=== PATIENT | male | born 1950 | race Caucasian/White ===

== ENCOUNTER → 2018-06-25 09:00 | Outpatient (CLI) | payer MEDICARE, OTHER, SELFPAY ==
[2018-06-25 09:17] LABS: Add Manual Diff / Slide Review NO; Basophils Absolute Auto 0 /uL (0-100); Eosinophils Absolute Auto 100 /uL (0-450); Eosinophils Percent Auto 1.9 % (2-4); Hematocrit 39.6 % (41-53); Hemoglobin 13.9 g/dL (13.5-17.5); Lymphocytes Absolute Auto 1800 /uL (1100-4500); Lymphocytes Percent Auto 56.5 % (25-40); Mean Corpuscular HGB Conc 35.1 % (30-36); Mean Corpuscular Hemoglobin 32.4 PG (26-34); Mean Corpuscular Volume 92.3 fL (80-100); Monocytes Absolute Auto 300 /uL (0-900); Neutrophils Absolute Auto 1000 /uL (1500-7000); Neutrophils Percent Auto 30.6 % (50-75); Platelet Count 234 X10^3/uL (150-400); Red Blood Cell Count 4.29 X10^6/uL (4.5-5.9); Red Cell Distribution Width 12.9 % (11.6-14.8); White Blood Cell Count 3.2 X10^3/uL (4.5-11.0)
[2018-06-25 09:37] LABS: Alanine Aminotransferase 29 IU/L (21-72); Albumin 4.6 g/dL (3.5-5.0); Albumin Globulin Ratio 1.4 (1.0-2.8); Alkaline Phosphatase 50 U/L (38-126); Aspartate Aminotransferase 31 IU/L (17-59); Bilirubin Total 1.1 mg/dL (0.2-1.3); Blood Urea Nitrogen 27 mg/dL (9-20); Calcium 9.7 mg/dL (8.4-10.2); Carbon Dioxide 26 mmol/L (22-32); Chloride 104 mmol/L (98-107); Cholesterol 197 mg/dL (140-199); Estimated Glomerular Filt Rate > 60.0 mL/min (>60); Globulin 3.4 g/dL (1.7-4.1); Glucose 85 mg/dL (80-110); HDL Cholesterol 58 mg/dL (40-60); HEMOLYSIS 19 (0-50); LDL Cholesterol Calculated 126 mg/dL (<100); Potassium 4.6 mmol/L (3.4-5.1); Sodium 140 mmol/L (137-145); Triglycerides 67 mg/dL (35-150)
[2018-06-25 11:01] LABS: Thyroid Stimulating Hormone 2.08 uIU/mL (0.47-4.68)
== END ==
PROVIDERS: PCP Family Medicine; Visit Provider Family Medicine
DX: E78.2 Mixed hyperlipidemia (principal); Z12.5 Encounter for screening for malignant neoplasm of prostate
CPT/HCPCS: 36415; 80053; 80061; 84153; 84443; 85025; G0103

== ENCOUNTER → 2019-02-12 11:16 | Outpatient (CLI) | payer MEDICARE, OTHER, SELFPAY ==
[2019-02-12 12:00] LABS: Add Manual Diff / Slide Review NO; Basophils Absolute Auto 0 /uL (0-100); Basophils Percent Auto 1.2 % (0-2); Eosinophils Absolute Auto 100 /uL (0-450); Eosinophils Percent Auto 1.7 % (2-4); Hematocrit 39.8 % (41-53); Hemoglobin 13.9 g/dL (13.5-17.5); Lymphocytes Absolute Auto 1700 /uL (1100-4500); Lymphocytes Percent Auto 54.2 % (25-40); Mean Corpuscular HGB Conc 34.8 % (30-36); Mean Corpuscular Hemoglobin 32.3 PG (26-34); Mean Corpuscular Volume 92.9 fL (80-100); Monocytes Absolute Auto 300 /uL (0-900); Monocytes Percent Auto 9.9 % (3-14); Neutrophils Absolute Auto 1100 /uL (1500-7000); Platelet Count 209 X10^3/uL (150-400); Red Blood Cell Count 4.29 X10^6/uL (4.5-5.9); White Blood Cell Count 3.2 X10^3/uL (4.5-11.0)
== END ==
PROVIDERS: PCP Family Medicine; Visit Provider Family Medicine
DX: D72.819 Decreased white blood cell count, unspecified (principal)
CPT/HCPCS: 36415; 85025

== ENCOUNTER → 2019-08-04 08:16 | Outpatient (CLI) | payer MEDICARE, OTHER, SELFPAY ==
[2019-08-04 09:34] LABS: Add Manual Diff / Slide Review NO; Basophils Absolute Auto 0 /uL (0-100); Basophils Percent Auto 0.9 % (0-2); Eosinophils Absolute Auto 200 /uL (0-450); Eosinophils Percent Auto 4.2 % (2-4); Hematocrit 41.7 % (41-53); Hemoglobin 14.3 g/dL (13.5-17.5); Lymphocytes Absolute Auto 2100 /uL (1100-4500); Lymphocytes Percent Auto 56.1 % (25-40); Mean Corpuscular HGB Conc 34.3 % (30-36); Mean Corpuscular Hemoglobin 32.2 PG (26-34); Mean Corpuscular Volume 93.8 fL (80-100); Monocytes Absolute Auto 400 /uL (0-900); Monocytes Percent Auto 10.8 % (3-14); Neutrophils Absolute Auto 1000 /uL (1500-7000); Platelet Count 220 X10^3/uL (150-400); Red Blood Cell Count 4.44 X10^6/uL (4.5-5.9); Red Cell Distribution Width 13.2 % (11.6-14.8); White Blood Cell Count 3.7 X10^3/uL (4.5-11.0)
--- NOTE | 2019-08-13 11:54 | ONC.MSW ---
Description: New Referral Navigation Activity: Reviewed pt's referral for acuity, medical status and immediate needs. Forwarded to scheduling for next available initial visit time.
== END ==
PROVIDERS: PCP Family Medicine; Referring Provider Family Medicine; Visit Provider Family Medicine
DX: R79.89 Other specified abnormal findings of blood chemistry (principal)
CPT/HCPCS: 36415; 85025

== ENCOUNTER → 2019-08-18 15:31 | Outpatient (CLI) | payer MEDICARE, OTHER, SELFPAY ==
[2019-08-18 15:48] LABS: Add Manual Diff / Slide Review NO; Basophils Absolute Auto 0 /uL (0-100); Basophils Percent Auto 1.1 % (0-2); Eosinophils Absolute Auto 100 /uL (0-450); Eosinophils Percent Auto 2.6 % (2-4); Hematocrit 38.4 % (41-53); Hemoglobin 13.5 g/dL (13.5-17.5); Lymphocytes Absolute Auto 1400 /uL (1100-4500); Lymphocytes Percent Auto 38.8 % (25-40); Mean Corpuscular HGB Conc 35.3 % (30-36); Mean Corpuscular Hemoglobin 32.6 PG (26-34); Mean Corpuscular Volume 92.4 fL (80-100); Monocytes Absolute Auto 500 /uL (0-900); Monocytes Percent Auto 13.8 % (3-14); Neutrophils Absolute Auto 1600 /uL (1500-7000); Neutrophils Percent Auto 43.7 % (50-75); Platelet Count 208 X10^3/uL (150-400); Red Blood Cell Count 4.15 X10^6/uL (4.5-5.9); Red Cell Distribution Width 13.5 % (11.6-14.8); White Blood Cell Count 3.6 X10^3/uL (4.5-11.0)
[2019-08-18 15:59] LABS: Alanine Aminotransferase 11 IU/L (<50); Albumin 4.6 g/dL (3.5-5.0); Albumin Globulin Ratio 1.2 (1.0-2.8); Alkaline Phosphatase 53 U/L (38-126); Aspartate Aminotransferase 26 IU/L (17-59); Bilirubin Total 1.1 mg/dL (0.2-1.3); Blood Urea Nitrogen 33 mg/dL (9-20); Calcium 9.7 mg/dL (8.4-10.2); Carbon Dioxide 26 mmol/L (22-32); Chloride 106 mmol/L (98-107); Estimated Glomerular Filt Rate > 60.0 mL/min (>60); Globulin 3.7 g/dL (1.7-4.1); Glucose 85 mg/dL (80-110); HEMOLYSIS < 15 (0-50); Lactate Dehydrogenase 359 U/L (313-618); Sodium 140 mmol/L (137-145); Total Protein 8.3 g/dL (6.3-8.2)
[2019-08-18 17:05] LABS: Folate 13.9 ng/mL (2.76-20.0); Vitamin B12 806 pg/mL (239-931)
[2019-08-19 04:22] LABS: Homocysteine 16.9 umol/L (0.0-17.2)
[2019-08-20 13:36] LABS: Albumin 3.9 g/dL (2.9-4.4); Alpha-1-Globulin 0.2 g/dL (0.0-0.4); Alpha-2-Globulin 0.5 g/dL (0.4-1.0); Gamma Globulin 1.4 g/dL (0.4-1.8); Globulin Total 3.1 g/dL (2.2-3.9)
[2019-08-20 14:31] LABS: Methylmalonic Acid,Serum 330 nmol/L (0-378)
== END ==
PROVIDERS: PCP Family Medicine; Referring Provider Internal Medicine Hematology & Oncology; Visit Provider Internal Medicine Hematology & Oncology
DX: D72.819 Decreased white blood cell count, unspecified (principal)
CPT/HCPCS: 36415; 80053; 82607; 82746; 83090; 83615; 83921; 84155; 84165; 85025

== ENCOUNTER → 2021-11-16 09:08 | Outpatient (CLI) | payer MEDICARE, OTHER, SELFPAY ==
[2021-11-16 09:43] LABS: Add Manual Diff / Slide Review NO; Basophils Absolute Auto 100 /uL (0-100); Basophils Percent Auto 1.3 % (0-2); Eosinophils Absolute Auto 100 /uL (0-450); Hematocrit 42.2 % (41-53); Hemoglobin 14.8 g/dL (13.5-17.5); Lymphocytes Absolute Auto 1900 /uL (1100-4500); Lymphocytes Percent Auto 47.9 % (25-40); Mean Corpuscular HGB Conc 34.9 % (30-36); Mean Corpuscular Hemoglobin 32.1 PG (26-34); Monocytes Absolute Auto 400 /uL (0-900); Monocytes Percent Auto 10.9 % (3-14); Neutrophils Absolute Auto 1500 /uL (1500-7000); Neutrophils Percent Auto 36.9 % (50-75); Platelet Count 243 X10^3/uL (150-400); Red Blood Cell Count 4.59 X10^6/uL (4.5-5.9); Red Cell Distribution Width 14.1 % (11.6-14.8)
[2021-11-16 12:11] LABS: Alanine Aminotransferase 18 IU/L (<50); Albumin 4.5 g/dL (3.5-5.0); Albumin Globulin Ratio 1.4 (1.0-2.8); Alkaline Phosphatase 63 U/L (38-126); Aspartate Aminotransferase 25 IU/L (17-59); BUN Creatinine Ratio 18.2 (6-22); Bilirubin Total 1.5 mg/dL (0.2-1.3); Blood Urea Nitrogen 22 mg/dL (9-20); Calcium 9.2 mg/dL (8.4-10.2); Carbon Dioxide 24 mmol/L (22-32); Chloride 104 mmol/L (98-107); Cholesterol 205 mg/dL (140-199); Estimated Glomerular Filt Rate > 60 mL/min (>60); Globulin 3.3 g/dL (1.7-4.1); Glucose 87 mg/dL (80-110); HDL Cholesterol 59 mg/dL (40-60); HEMOLYSIS < 15 (0-50); LDL Cholesterol Calculated 127 mg/dL (<100); Potassium 4.5 mmol/L (3.4-5.1); Sodium 139 mmol/L (137-145); Total Protein 7.8 g/dL (6.3-8.2); Triglycerides 93 mg/dL (35-150)
[2021-11-16 12:42] LABS: Prostate Specific Antigen 1.36 ng/mL (0.10-4.00)
== END ==
PROVIDERS: PCP Family Medicine; Referring Provider Family Medicine; Visit Provider Family Medicine
DX: K63.5 Polyp of colon (principal); E78.2 Mixed hyperlipidemia; Z90.79 Acquired absence of other genital organ(s); D72.819 Decreased white blood cell count, unspecified
CPT/HCPCS: 36415; 80053; 80061; 84153; 85025

== ENCOUNTER → 2024-11-25 11:03 | Outpatient (CLI) | payer MEDICARE, OTHER, SELFPAY ==
[2024-11-25 12:11] LABS: Add Manual Diff / Slide Review NO; Hematocrit 40.1 % (41-53); Hemoglobin 14.1 g/dL (13.5-17.5); Lymphocytes Absolute Auto 1700 /uL (1100-4500); Mean Corpuscular HGB Conc 35.2 % (30-36); Mean Corpuscular Hemoglobin 32.5 PG (26-34); Mean Corpuscular Volume 92.4 fL (80-100); Platelet Count 225 X10^3/uL (150-400)
[2024-11-25 12:17] LABS: Hemoglobin A1C% w Est Avg Glu 4.7 % (4.0-6.0)
[2024-11-25 12:27] LABS: Alanine Aminotransferase 15 IU/L (<50); Albumin 4.6 g/dL (3.5-5.0); Albumin Globulin Ratio 1.4 (1.0-2.8); Alkaline Phosphatase 60 U/L (38-126); Blood Urea Nitrogen 30 mg/dL (9-20); Calcium 9.6 mg/dL (8.4-10.2); Carbon Dioxide 23 mmol/L (22-32); Chloride 105 mmol/L (98-107); Estimated Glomerular Filt Rate > 60 mL/min (>60); Globulin 3.3 g/dL (1.7-4.1); Glucose 79 mg/dL (70-99); HEMOLYSIS < 15 (0-50); Iron 141 ug/dL (49-181); Potassium 4.7 mmol/L (3.4-5.1); Sodium 138 mmol/L (137-145); Total Protein 7.9 g/dL (6.3-8.2)
[2024-11-25 12:44] LABS: Percent Iron Saturation 47 % (20-50); Total Iron Binding Capacity 298 ug/dL (261-462); Transferrin 232 mg/dL (206-381)
[2024-11-25 12:55] LABS: TSH w/ Reflex to FT4 3.72 uIU/mL (0.47-4.68)
[2024-11-25 13:14] LABS: Vitamin B12 883 pg/mL (239-931)
== END ==
PROVIDERS: PCP Family Medicine; Referring Provider Family Medicine; Visit Provider Family Medicine
DX: Z12.5 Encounter for screening for malignant neoplasm of prostate (principal); R25.1 Tremor, unspecified; D64.89 Other specified anemias; K63.5 Polyp of colon; N40.0 Benign prostatic hyperplasia without lower urinary tract symptoms; E78.2 Mixed hyperlipidemia; R26.9 Unspecified abnormalities of gait and mobility
CPT/HCPCS: 36415; 80053; 82607; 83036; 83540; 83550; 84443; 85025; G0103

== ENCOUNTER → 2024-12-22 06:41 | Outpatient (CLI) | payer MEDICARE, OTHER, SELFPAY ==
--- NOTE | 2024-12-22 06:43 | DI.US.S_ITS ---
PROCEDURE: US ABDOMEN LIMITED INDICATIONS: ABNORMAL LFTS TECHNIQUE: Real-time scanning was performed of the abdominal and retroperitoneal organs, with image documentation. COMPARISON: None. FINDINGS: Liver: Liver is normal in size and homogeneous in echotexture. Gallbladder: 7 mm gallstone in the neck. Tumefactive sludge versus 5 mm gallbladder polyp; size does not warrant follow-up per consensus guidelines. No wall thickening. No pericholecystic edema. Negative sonographic Ding's sign. Biliary ducts: Intrahepatic bile ducts are non-dilated. Extrahepatic bile duct caliber measures 5 mm. Normal is 6-7 mm or less in diameter, or 10 mm or less post-cholecystectomy. Pancreas: Not well visualized due to overlying bowel gas. Miscellaneous: No free abdominal fluid. IMPRESSION: Cholelithiasis without wall thickening or adjacent fat stranding to suggest acute cholecystitis. Dictated by: Fredy Mendoza M.D. on 12/22/2024 at 10:54 Approved by: Fredy Mendoza M.D. on 12/22/2024 at 10:56
== END ==
LOC: US 06:42
PROVIDERS: PCP Family Medicine; Referring Provider Family Medicine; Visit Provider Family Medicine
DX: R17 Unspecified jaundice (principal); K80.20 Calculus of gallbladder without cholecystitis without obstruction
CPT/HCPCS: 76705

== ENCOUNTER 2025-03-02 07:34 | Day surgery (SDC) | payer MEDICARE, OTHER, SELFPAY ==
[2025-02-19 13:44] VITALS: BMI 25.7
--- NOTE | 2025-03-02 | DI.RAD.S_ITS ---
PROCEDURE: XR CHOLANGIOGRAM OPERATIVE INDICATIONS: LAP PA COMPARISON: None. FINDINGS: Biliary ducts: The surgeon injected contrast into the biliary ducts after cannulation of the cystic duct stump. Visualized intra- and extrahepatic bile ducts are normal in caliber, without strictures. No intraluminal filling defects to suggest retained ductal stones or sludge. No evidence for iatrogenic ductal injury. Duodenum: Contrast flows promptly through the sphincter of Oddi into the duodenum, which appears normal in caliber. IMPRESSION: No filling defects within the opacified biliary tree. Dictated by: Fredy Mendoza M.D. on 03/02/2025 at 12:18 Approved by: Fredy Mendoza M.D. on 03/02/2025 at 12:18
--- NOTE | 2025-03-02 | PATH_ITS ---
[facility] Accession Number: [id number] No. of containers..01 Tissue . 01 Material submitted: . gallbladder - GALLBLADDER . 01 Diagnosis: GALLBLADDER: One benign cystic duct lymph node (0/1). Chronic cholecystitis, cholesterolosis, and cholelithiasis. [facility] 03/16/2025 1330 Local . 01 Electronically signed: . Juju Mcfadden MD, Pathologist NPI- [id number] . 01 Gross description: . The specimen is received in formalin with two patient identifiers and gallbladder and consists of an 8.5 x 2.8 x 2.0 cm, previously opened gallbladder. The serosal surface is de guzman, pink, smooth, glistening with slightly congested serosal vessels. There is a 0.4 x 0.3 cm clipped probe-patent cystic duct which inked blue. In addition, there is a 0.6 cm in greatest dimension, red-de guzman, encapsulated lymph node adjacent to the cystic duct. The specimen is opened to show a uniformly thick gallbladder wall averaging 0.2 cm. The mucosa is de guzman-green, finely granular, and free of exophytic lesions or polyps. The lumen is filled with a 1.1 x 1.0 x 0.4 cm aggregate of black, multifaceted, crushed gallstones. Financial Accountant sections are submitted in A1 to include cystic duct, lymph node bisected, and instruments sales representative sections of gallbladder. ([id number]) /MRV 03/03/2025 1834 Local . 01 Pathologist provided ICD-10: K80.00 . 01 CPT . 931009 Specimen Comment: A courtesy copy of this report has been sent to [facility] Pathology Performed at: [address] [address], [place], [place] [id number] MD Bao Diaz MD Phone: [phone]
--- NOTE | 2025-03-02 06:10 | PM.PREOP ---
Pre-operative Note Interval Note History & Physical reviewed/Exam performed by Physician: Yes Changes to H&P: No ASA Class (for procedural sedation): II
[2025-03-02 08:13] VITALS: BP 147/81; PULSE 72; RESP 15; TEMP 36.6; O2SAT 98
[2025-03-02] MEDS: LACTATED RINGERS 1,000 ML 42 ML IV (08:32)
[2025-03-02] MEDS: FAMOTIDINE 20 MG/2 ML VIAL IV (08:33)
[2025-03-02] MEDS: ACETAMINOPHEN 325 MG TABLET 975 MG PO (08:33)
--- NOTE | 2025-03-02 10:33 | SUR.OPER ---
Supine on padded OR bed, head on pillow, arms padded and tucked at sides, legs uncrossed, feet on padded footboard, safety belt at thighs, tape over blanket over lower legs.
[2025-03-02] MEDS: BUPivacaine 0.25% W/ EPI (PF) 30 ML VIAL 60 ML INJ (10:58)
--- NOTE | 2025-03-02 11:33 | PM.OP.1 ---
Operative Date/Time/Diagnoses Date of procedure: 03/02/25 Time of procedure: 11:33 Pre-op diagnosis: Symptomatic cholelithiasis Post-op diagnosis: same Procedure & Clinicians Procedure: Laparoscopic cholecystectomy with cholangiogram Same procedure(s) as scheduled: Yes Indications: 74yo M with symptomatic cholelithiasis Surgeon: Yonatan Gasca Assisted?: Yes [employer] Associate: Nasir Cox Anesthesia Type: General Operative Notes Findings: Gallbladder distended, aspirated 120cc dark bile, no omental adhesions, IOCG normal Closure Type: primary Specimen(s): other (gallbladder) Applied: none Estimated Blood Loss (mL): 20 Blood products transfused: none Procedure in detail: After informed consent and satisfactory general endotracheal anesthesia, the abdomen was prepped and draped in the usual sterile manner. The patient received appropriate preoperative antibiotics and DVT prophylaxis. Surgical time-out was performed with all team members in agreement. The pneumoperitoneum was established to a pressure of 15 mmHg with carbon dioxide gas via an umbilical incision direct cutdown technique. An 0 Vicryl [id number]-[id number] suture was placed in the fascia. The 10 mm 30 degree lens was inserted and no trauma secondary to trocar insertion was noted. The three 5mm right upper quadrant trocars were inserted under direct vision. Bilateral laparoscopic TAP blocks were performed by injecting 25 cc of 0.25% Marcaine with epinephrine into the transversus abdominis muscles bilaterally. A total of 60 cc of local was used. The remaining local was used in the skin. The patient was placed in reverse Trendelenburg, eggoc-[id number]-gt position. The gallbladder was noted to be tense and distended and I aspirated 120 cc of dark inspissated bile to aid in grasping. The fundus of the gallbladder was grasped and retracted over the liver. The infundibulum was grasped and retracted laterally for proper exposure of the cystic duct and artery. We scored the peritoneum medially and laterally and then skeletonized the cystic duct and artery. Critical view of safety was achieved with 2 distinct structures entering the gallbladder with segment 5 of the liver posterior. A cholangiogram was obtained by clipping the cystic duct next to the gallbladder, making a ductotomy with the Metzenbaum scissors and inserting a cholangiogram catheter. We used the yellow ureteral catheter through the Magallon clamp. A cholangiogram was obtained using fluoroscopy. The cholangiogram was normal. There were normal left and right hepatic ducts and common hepatic duct and they were nondilated. The common bile duct was normal. The cystic duct was elongated. There were no filling defects, strictures or mass and the contrast flowed into the duodenum without obstruction. The cholangiogram catheter was removed. The cystic duct was doubly clipped and divided with Metzenbaum scissors. The cystic artery was similarly doubly clipped and divided with Metzenbaum scissors. The adhesions between the gallbladder and the liver were divided with cautery. The gallbladder was placed into an endo-pouch and removed. We cauterized several points of bleeding in the liver bed. We irrigated the right upper quadrant and suctioned it dry. The liver bed and clips were inspected and there was no bleeding or bile drainage noted. The pneumoperitoneum was released, the trocars were removed. There was no bleeding noted at the trocar sites. The O-vicryl coosvk-jh-srnor suture was tied at the umbilical fascia and there were no palpable fascial defects. The skin incisions were closed using 4-0 Monocryl in a subcuticular manner. Dermabond glue was applied as a final dressing. The estimated blood loss was minimal. The instrument, sponge and needle counts were all correct x2. The patient tolerated the procedure well and was extubated in the operating room and transported to the recovery area in stable condition. Complications: none Post-operative Condition: stable Disposition: PACU Plan for aftercare: PACU then home
[2025-03-02 11:34] VITALS: BP 147/69; PULSE 72; RESP 16; TEMP 36.2; O2SAT 97
[2025-03-02 11:41] VITALS: BP 142/70; PULSE 80; RESP 16; TEMP 36.2; O2SAT 97
[2025-03-02] MEDS: ONDANSETRON 4 MG/2 ML INJ IV (11:49)
[2025-03-02 11:50] VITALS: BP 151/77; PULSE 75; RESP 12; TEMP 36.1; O2SAT 99
[2025-03-02] MEDS: fentaNYL 100 MCG/2 ML INJ IV ×2 (11:54→12:03)
[2025-03-02 11:56] VITALS: BP 143/77; PULSE 77; RESP 12; TEMP 36.1; O2SAT 98
[2025-03-02 13:11] VITALS: BP 161/68; PULSE 85; RESP 14; TEMP 36.1; O2SAT 98
== END 2025-03-02 13:15 | disposition home or self-care (01) ==
PROVIDERS: PCP Family Medicine; Referring Provider Family Medicine; Visit Provider Surgery
PROC: 0FT44ZZ Resection of Gallbladder, Percutaneous Endoscopic Approach (ICD-10-PCS; CPT 47563; principal; 2025-03-02 09:15)
DX: K80.10 Calculus of gallbladder with chronic cholecystitis without obstruction (principal)
CPT/HCPCS: 47563; 74300; J0689; J1100; J1171; J2405; J2704; J3010; J3490; J7120; Q9967